=== PATIENT | female | born 1980 | race Caucasian/White ===

== ENCOUNTER 2018-12-04 18:42 | Inpatient (IN) | payer MEDICAID ==
[~2018-12-04] VITALS: Ht 152.4 cm; Wt 86.5 kg
[~2018-12-04 18:42] MED LIST: ALBU8.5H8 INH; PNV11TAB PO
[2018-12-04 19:54] VITALS: BP 128/63; PULSE 131; RESP 18; Ht 152.4 cm; Wt 86.5 kg
[2018-12-04] MEDS ORDERED: CEFAZOLIN 2 GM/50 ML (PMX) 50 ML IVPB SCH (23:00)
[2018-12-04] MEDS: ACETAMINOPHEN 325 MG TAB PO PRN (23:16)
[2018-12-04] MEDS: LACTATED RINGER'S 1,000 ML IV SCH (23:16)
[2018-12-04] MEDS: GUAIFENESIN 20 MG/ML 5ML CUP PO PRN (23:16)
[2018-12-04] MEDS: CEFAZOLIN 2 GM/50 ML (PMX) 50 ML IVPB SCH (23:17)
[2018-12-05] MEDS: GUAIFENESIN 20 MG/ML 5ML CUP PO PRN ×4 (04:20→23:16)
[2018-12-05] MEDS: ACETAMINOPHEN 325 MG TAB PO PRN ×3 (04:24→18:41)
[2018-12-05] MEDS ORDERED: FENTAnyl 2MCG/ML-ROPIV 0.2% 100 ML ONE (05:14)
[2018-12-05] MEDS: LACTATED RINGER'S 1,000 ML IV SCH ×2 (06:29→16:02)
[2018-12-05] MEDS: CEFAZOLIN 2 GM/50 ML (PMX) 50 ML IVPB SCH ×3 (07:36→23:16)
[2018-12-05 10:22] VITALS: BP 112/59; PULSE 127; RESP 21
[2018-12-05] MEDS ORDERED: AZITHROMYCIN 500 MG in SOD CHLORIDE 0.9% 250 ML IVPB SCH (10:30)
[2018-12-05] MEDS: AZITHROMYCIN 500MG/NS (PMX) 250 ML IV SCH (12:19)
[2018-12-05 12:42] VITALS: BP 130/67; PULSE 132; RESP 30
[2018-12-05 13:18] VITALS: PULSE 124; RESP 22
[2018-12-05 14:00] VITALS: BP 110/60; PULSE 115; RESP 19
[2018-12-05 18:44] VITALS: BP_SYST 120; BP_SYST 66; BP_DIAS 120; BP_DIAS 66; PULSE 130; RESP 22
[2018-12-05 20:00] VITALS: BP 102/60; PULSE 118; RESP 19
[2018-12-06] MEDS: LACTATED RINGER'S 1,000 ML IV SCH ×3 (01:50→16:08)
[2018-12-06 02:00] VITALS: BP 122/63; PULSE 113; RESP 19
[2018-12-06] MEDS: ACETAMINOPHEN 325 MG TAB PO PRN ×4 (02:00→22:18)
[2018-12-06] MEDS: GUAIFENESIN 20 MG/ML 5ML CUP PO PRN ×5 (03:28→22:19)
[2018-12-06] MEDS: CEFAZOLIN 2 GM/50 ML (PMX) 50 ML IVPB SCH ×3 (06:52→23:09)
[2018-12-06 08:14] VITALS: BP 100/66; PULSE 85; RESP 20
[2018-12-06] MEDS: AZITHROMYCIN 500MG/NS (PMX) 250 ML IV SCH (08:57)
[2018-12-06 14:00] VITALS: BP 106/69; PULSE 106; RESP 19
[2018-12-06 19:35] VITALS: BP 115/64; PULSE 99; RESP 20
[2018-12-06] MEDS: CEPASTAT LOZENGE MT PRN (22:17)
[2018-12-07 02:00] VITALS: BP 108/61; PULSE 96; RESP 20
[2018-12-07] MEDS: LACTATED RINGER'S 1,000 ML IV SCH ×2 (02:20→12:58)
[2018-12-07] MEDS: ACETAMINOPHEN 325 MG TAB PO PRN ×3 (04:00→20:38)
[2018-12-07] MEDS: GUAIFENESIN 20 MG/ML 5ML CUP PO PRN ×3 (04:01→20:38)
[2018-12-07 08:40] VITALS: BP 103/68; PULSE 75; RESP 18
[2018-12-07] MEDS: CEPASTAT LOZENGE MT PRN ×2 (09:20→20:41)
[2018-12-07] MEDS: CEFAZOLIN 2 GM/50 ML (PMX) 50 ML IVPB SCH ×3 (09:22→23:01)
[2018-12-07] MEDS: AZITHROMYCIN 500MG/NS (PMX) 250 ML IV SCH (10:28)
[2018-12-07] MEDS: ALBUTEROL 0.083% (NEB) 2.5 MG/3 ML AMP HHN PRN ×3 (11:38→21:10)
[2018-12-07 15:05] VITALS: BP 112/63; PULSE 93; RESP 20
[2018-12-07 19:40] VITALS: BP 106/64; PULSE 93; RESP 18
[2018-12-08 02:00] VITALS: BP 105/61; PULSE 86; RESP 20
[2018-12-08] MEDS: ACETAMINOPHEN 325 MG TAB PO PRN (03:31)
[2018-12-08] MEDS: GUAIFENESIN 20 MG/ML 5ML CUP PO PRN ×2 (03:32→18:35)
[2018-12-08] MEDS: ALBUTEROL 0.083% (NEB) 2.5 MG/3 ML AMP HHN PRN ×2 (08:21→13:34)
[2018-12-08 08:45] VITALS: BP 105/60; PULSE 82; RESP 20
[2018-12-08] MEDS: CEFAZOLIN 2 GM/50 ML (PMX) 50 ML IVPB SCH ×3 (08:48→23:49)
[2018-12-08] MEDS: AZITHROMYCIN 500MG/NS (PMX) 250 ML IV SCH (10:14)
[2018-12-08 14:02] VITALS: BP 112/66; PULSE 96; RESP 20
[2018-12-08] MEDS: CEPASTAT LOZENGE MT PRN (18:35)
[2018-12-09] MEDS: CEFAZOLIN 2 GM/50 ML (PMX) 50 ML IVPB SCH ×2 (07:53→15:57)
[2018-12-09] MEDS: AZITHROMYCIN 500MG/NS (PMX) 250 ML IV SCH (10:23)
== END 2018-12-09 18:00 | disposition home or self-care (01) | DRG 833 ==
LOC: OBT 18:42 → L-D 18:44 → OBT 22:00 → L-D 22:00 → PP2 12-05 09:59 → L-D 12-08 19:21
PROVIDERS: ADMIT Obstetrics & Gynecology; ATTEND Obstetrics & Gynecology Gynecology
DX: O99.513 Diseases of the respiratory system complicating pregnancy, third trimester (principal); O99.013 Anemia complicating pregnancy, third trimester; O09.523 Supervision of elderly multigravida, third trimester; O99.213 Obesity complicating pregnancy, third trimester; E66.01 Morbid (severe) obesity due to excess calories; Z3A.33 33 weeks gestation of pregnancy
CPT/HCPCS: 71046; 76818; 80053; 81001; 85025; 87070; 87086; 93005; 94640; 94664; G0463; J0456; J0690; J3010; J7050; J7120

== ENCOUNTER 2018-12-13 22:29 | Emergency (ER) | payer MEDICAID ==
[~2018-12-13] VITALS: Ht 152.4 cm; Wt 89.2 kg
[2018-12-13 22:32] VITALS: Ht 152.4 cm; Wt 89.2 kg
[2018-12-13] MEDS ORDERED: ALBUTEROL 0.083% (NEB) 2.5 MG/3 ML AMP HHN STA (23:19)
[2018-12-14 01:05] VITALS: BP 132/78; PULSE 88; RESP 18
== END 2018-12-14 01:06 | disposition home or self-care (01) ==
LOC: FTE 22:29
DX: O26.893 Other specified pregnancy related conditions, third trimester (principal); R05 Cough; Z3A.34 34 weeks gestation of pregnancy
CPT/HCPCS: 94664; Z7610